=== PATIENT | male | born 1955 | race Caucasian/White ===

== ENCOUNTER 2016-10-05 10:19 | Outpatient (CLI) | payer BC, OTHER | END 2016-10-05 10:20 | disposition home or self-care (01) | DX: Z51.81 Encounter for therapeutic drug level monitoring (principal); E78.5 Hyperlipidemia, unspecified; Z12.5 Encounter for screening for malignant neoplasm of prostate; I10 Essential (primary) hypertension ==

== ENCOUNTER 2016-12-12 07:50 | Day surgery (SDC) | payer BC, OTHER ==
--- NOTE | 2016-12-12 08:55 | SURGERY HX AND PHYSICAL(T) ---
Surgical History & Physical - PMH/PSH/Social Hx Eyes, Ears, Nose, Throat: Other Cardiovascular: Hypertension Respiratory: None Skin: None Endocrine/Autoimmune: None Gastrointestinal: GERD, Hiatal hernia Urinary: None Musculoskeletal: Osteoarthritis Psychiatric: None Orthopedic: Other - Vital Signs Temperature: 36.2 C Respiratory Rate: 16 O2 Saturation: 95 Weight (kg): 118 kg Height: 1.83 m - Patient Review Patient Review: Problems were reviewed with the patient during this visit. Medications were reviewed with the patient during this visit. Allergies were reviewed this patient during this visit. Pertinent Tests Reviewed: All pertitent test for this patient were reviewed. - Assessment & Plan Assessment and Plan: This very pleasant 61-year-old gentleman was sent to our office by Ina Wisdom PA-C on November 10 for his first screening colonoscopy as well as an EGD for persistent GERD. He was seen by Dr. Joann Garcia and a consultation was performed. Since I had not seen the patient I saw him today, reviewed the history and physical with him verbatim, and there are no substantive changes. Additionally, the patient was examined and again there are no changes. From this point forward the dictation is Dr. Kandy Figueroa and as stated am in agreement with it. Mr. Macias presents to be evaluated for colonoscopy and EGD. He has not had a prior colonoscopy. He states that he has a fear of hospitals after being hospitalized for trauma after an accident and has been putting off having the colonoscopy done. He has had an EGD done years ago prior to his hospitalization and has known GERD being treated with Nexium 20mg daily, but has been having worsening symptoms with regurgitation up into the mouth waking him up at night. No hematemesis, no blood in his stools. No family history of colon cancer. He has been instructed to take a daily baby aspirin, but he has not been taking it and doesn't take any other blood thinners. Family History Summary: Mother (biol.) - Has a Hx of Other Medical Problems - Entered On: 11/10/2016 General Comments - FH: Mother: HTN Risk Factors: Smoked Tobacco Use: Former smoker Smokeless Tobacco Use: Never Passive smoke exposure: yes Drug use: no HIV high-risk behavior: no Caffeine use: 2 drinks per day Alcohol use: no Exercise: yes Times per week: 5 Type of Exercise: active work Seatbelt use: 100 % Sun Exposure: rarely Family History Risk Factors: Family History of AL in females < 65 years old: no Family History of AL in males < 55 years old: no Review of Systems General Denies fever, anorexia and weight loss. GI Complains of abdominal pain, nausea and indigestion/heartburn. regurgitation of acid up into the mouth, but no true emesis; epigastric abdominal pain CV Denies chest pains, palpitations, syncope and peripheral edema. Resp Denies cough, shortness of breath, hemoptysis, wheezing and pleuritic chest pain. Neuro Denies paralysis, paresthesias, seizures and frequent headaches. Vital Signs: Patient Profile: 61 Years Old Male Height: 72 inches Weight: 266.4 pounds BMI: 36.13 O2 Sat: 96 % on room air Temp: 99.2 degrees F temporal Pulse rate: 79 / minute Pulse rhythm: regular Resp: 16 per minute BP sittin / 81 Cuff size: regular Vitals Entered By: Juan Carlos Poe RN (November 10, 2016 9:45 AM) Medications were reviewed with the patient during this visit. Allergies were reviewed with the patient during this visit. No known allergies. Physical Exam General: normal appearance and healthy appearing. no acute distress Head: normocephalic and atraumatic Eyes: EOMI, sclera anicteric Ears: normal hearing, no gross deformities Neck: supple, no JVD Lungs: CTA B Heart: RRR Abdomen: soft, obese, NT/ND, +BS Rectal: deferred until colonoscopy Msk: normal ROM Neurologic: A&OX3, no focal deficits Impression & Recommendations: Symptoms of GERD are worsening. Will schedule him for an EGD along with colonoscopy. I explained that biopsies likely will be taken and he should avoid aspirin, ibuprofen, alleve and other NSAIDS prior to the procedure. He is overdue for a screening colonoscopy and will be scheduled for the procedure. The risks and benefits of both the EGD and colonoscopy were explained to him in detail and all his questions were answered. 20 minutes of [id number] time was spent with the patient and in the gneration of this note
[2016-12-12] MEDS ORDERED: fentaNYL 100 MCG/2 ML VIAL IVP ONE (09:25)
[2016-12-12] MEDS ORDERED: LACTATED RINGERS 1,000 ML IV ONE (09:25)
[2016-12-12] MEDS ORDERED: MIDAZOLAM 2 MG/2 ML VIAL IVP ONE (09:25)
[2016-12-12] MEDS ORDERED: BENZOCAINE/TETRACAINE/BUTAMBEN SPRAY 56 GM TOP ONE (09:34)
[2016-12-12] MEDS ORDERED: LIDO GARGLE 30 ML BOTTLE PO ONE ×2 (09:34)
[2016-12-12 11:13] VITALS: BP 132/82
== END 2016-12-12 07:51 | disposition home or self-care (01) ==
LOC: SDS 07:50
PROVIDERS: ATTEND Surgery
PROC: 0DBN8ZX Excision of Sigmoid Colon, Via Natural or Artificial Opening Endoscopic, Diagnostic (ICD-10-PCS; principal; 2016-12-12 08:45)
PROC: 0DJ08ZZ Inspection of Upper Intestinal Tract, Via Natural or Artificial Opening Endoscopic (ICD-10-PCS; 2016-12-12 08:45)
DX: Z12.11 Encounter for screening for malignant neoplasm of colon (principal); K21.9 Gastro-esophageal reflux disease without esophagitis; K57.30 Diverticulosis of large intestine without perforation or abscess without bleeding; D12.5 Benign neoplasm of sigmoid colon; K64.8 Other hemorrhoids; K44.9 Diaphragmatic hernia without obstruction or gangrene; K29.70 Gastritis, unspecified, without bleeding; Z87.891 Personal history of nicotine dependence; E66.9 Obesity, unspecified; I10 Essential (primary) hypertension; Z68.35 Body mass index [BMI] 35.0-35.9, adult
CPT/HCPCS: 43235; 45385; 87081; A9270; J7120; 88305